=== PATIENT | male | born 1970 | race Two or more races ===

== ENCOUNTER 2024-08-29 00:52 | Emergency (ER) | payer OTHER ==
[~2024-08-29] VITALS: Ht 170.2 cm; Wt 59.0 kg
[2024-08-29] MEDS ORDERED: KETOROLAC TROMETHAMINE 60 MG VIAL IM ONE ×2 (03:45→03:46)
[2024-08-29] MEDS ORDERED: DEXAMETHASONE SODIUM PHOSPHATE 4 MG/ML VIAL IM ONE (03:45)
[2024-08-29] MEDS ORDERED: DEXAMETHASONE SODIUM PHOSPHATE 4 MG/ML VIAL ONE (03:47)
[2024-08-29 04:12] LABS: BASO % 0.6 % (0.1-1.2); EOS # 0.17 (0.04-0.54); EOS % 1.9 % (0.7-7.0); HEMATOCRIT 46.8 % (40.1-51.0); HEMOGLOBIN 15.4 g/dL (13.7-17.5); LYMPH # 2.27 (1.18-3.74); MEAN CORPUSCULAR HEMOGLOBIN 28.8 pg (25.6-32.2); MONO # 0.82 (0.24-0.82); MONO % 9.4 % (4.7-12.5); PLATELET COUNT 149 K/uL (163-369); RED BLOOD COUNT 5.35 M/uL (4.63-6.08); RED CELL DISTRIBUTION WIDTH 12.8 % (11.6-14.4)
[2024-08-29] MEDS ORDERED: DICLOFENAC SODI75 MG PO (04:34)
== END 2024-08-29 05:14 | disposition home or self-care (01) ==
LOC: ER 00:52
PROVIDERS: General Practice
DX: R07.0 Pain in throat (principal)

== ENCOUNTER 2024-08-30 13:49 | Outpatient (CLI) | payer OTHER ==
[~2024-08-30 13:49] MED LIST: DICLOFENAC SODI75 MG PO
== END 2024-08-30 14:13 | disposition home or self-care (01) ==
LOC: SONOGRAMA 13:49
PROVIDERS: ATTEND General Practice
DX: M54.2 Cervicalgia (principal)